=== PATIENT | male | born 1985 | race Caucasian/White ===

== ENCOUNTER 2018-05-10 15:47 | Emergency (ER) | payer SELFPAY ==
[2018-05-10] MEDS ORDERED: NA CHLORIDE 0.9% 1,000 ML ONE (17:59)
[2018-05-10 18:21] LABS: Absolute Lymphocytes (CBC) 2.8 K/uL (0.7-4.9); Absolute Monocytes 0.5 K/uL (0.1-1.3); Absolute Neutrophil 3.5 K/uL (1.8-8.0); Basophils % 0.4 % (0-1.3); Eosinophils % 0.9 % (0-4.4); Lymphocytes % 40.9 % (15.3-44.8); MCH 30.7 pg (27.0-35.0); MCV 91.1 fL (80-100); MPV 9.8 fL (7.6-11.3); Monocytes % 6.6 % (3.3-12.3); RBC Red Blood Cell Count 4.83 M/uL (4.33-5.43)
[2018-05-10 18:40] LABS: ALT/SGPT 32 U/L (12-78); AST/SGOT 16 U/L (15-37); Albumin 4.3 g/dL (3.4-5.0); Alkaline Phosphatase 53 U/L (45-117); BUN Blood Urea Nitrogen 13 mg/dL (7-18); Bicarbonate 32 mmol/L (21-32); Bilirubin Total 0.4 mg/dL (0.2-1.0); Glucose Level 84 mg/dL (74-106); Potassium 3.9 mmol/L (3.5-5.1); Protein, Total 7.7 g/dL (6.4-8.2); Sodium Level 140 mmol/L (136-145)
--- NOTE | 2018-05-10 19:34 | EDPHYS ---
Physician Documentation [facility] Name: Jayme Christian Age: 32 yrs Sex: Male : 1985 Arrival Date: 05/10/2018 Time: 15:50 Bed 13 Private MD: None, None ED Physician Kavon Vergara HPI: 05/10 18:05 This 32 yrs old Male presents to ER via Ambulatory with complaints of FATIGUE.jr8 18:05 Onset: The symptoms/episode began/occurred gradually, 2 day(s) ago. Associated signs jr8 and symptoms: Pertinent positives: shortness of breath, frequent thirst and urination . The patient has not experienced similar symptoms in the past. The patient has not recently seen a physician. Patient stated that he had URI about 1 week ago. Most of the symptoms have gone away. Tried working out and going to work. Stated that he is still breaking out into sweats. Having easy fatigue and shortness of breath along with chills still. Stated that he noticed he is requiring more water and urinating more as well . Historical: - Allergies: 16:24 steroid cream; aj1 - Home Meds: 16:24 None [Active]; aj1 - PMHx: 16:24 None; aj1 - PSHx: 16:24 None; aj1 - Immunization history:: Flu vaccine is not up to date. Last tetanus immunization: up to date. - Social history:: Smoking status: Patient/guardian denies using tobacco. - Ebola Screening: : Patient denies travel to an Ebola-affected area in the 21 days before illness onset. ROS: 18:05 Eyes: Negative for injury, pain, redness, and discharge, ENT: Negative for injury, jr8 pain, and discharge, Neck: Negative for injury, pain, and swelling, Cardiovascular: Negative for chest pain, palpitations, and edema, Abdomen/GI: Negative for abdominal pain, nausea, vomiting, diarrhea, and constipation, Back: Negative for injury and pain, MS/Extremity: Negative for injury and deformity, Skin: Negative for injury, rash, and discoloration, Neuro: Negative for headache, weakness, numbness, tingling, and seizure. 18:05 Constitutional: Positive for chills, fatigue. 18:05 Respiratory: Positive for shortness of breath, Negative for cough, sputum production, wheezing. 18:05 Endocrine: Positive for polydipsia, polyuria. Exam: 18:05 Eyes: Pupils equal round and reactive to light, extra-ocular motions intact. Lids and jr8 lashes normal. Conjunctiva and sclera are non-icteric and not injected. Cornea within normal limits. Periorbital areas with no swelling, redness, or edema. ENT: Nares patent. No nasal discharge, no septal abnormalities noted. Tympanic membranes are normal and external auditory canals are clear. Oropharynx with no redness, swelling, or masses, exudates, or evidence of obstruction, uvula midline. Mucous membranes moist. Neck: Trachea midline, no thyromegaly or masses palpated, and no cervical lymphadenopathy. Supple, full range of motion without nuchal rigidity, or vertebral point tenderness. No Meningismus. Cardiovascular: Regular rate and rhythm with a normal S1 and S2. No gallops, murmurs, or rubs. Normal PMI, no JVD. No pulse deficits. Respiratory: Lungs have equal breath sounds bilaterally, clear to auscultation and percussion. No rales, rhonchi or wheezes noted. No increased work of breathing, no retractions or nasal flaring. Abdomen/GI: Soft, non-tender, with normal bowel sounds. No distension or tympany. No guarding or rebound. No evidence of tenderness throughout. Back: No spinal tenderness. No costovertebral tenderness. Full range of motion. Skin: Warm, dry with normal turgor. Normal color with no rashes, no lesions, and no evidence of cellulitis. MS/ Extremity: Pulses equal, no cyanosis. Neurovascular intact. Full, normal range of motion. Neuro: Awake and alert, GCS 15, oriented to person, place, time, and situation. Cranial nerves II-XII grossly intact. Motor strength 5/5 in all extremities. Sensory grossly intact. Cerebellar exam normal. Normal gait. Vital Signs: 16:24 BP 138 / 99; Pulse 68; Resp 18; Temp 98.1; Pulse Ox 98% on R/A; Weight 102.06 kg; aj1 Height 6 ft. 2 in. (187.96 cm); Pain 0/10; 19:53 BP 107 / 83; Pulse 56; Resp 16; Temp 98.2; Pulse Ox 100% on R/A; Pain 0/10; ak1 16:24 Body Mass Index 28.89 (102.06 kg, 187.96 cm) aj1 MDM: 17:18 Patient medically screened. [facility] 19:29 Data reviewed: vital signs, nurses notes, lab test result(s), radiologic studies, plain [facility] films, and as a result, I will discharge patient. Data interpreted: Pulse oximetry: on room air is 98 %. Interpretation: normal. Counseling: I had a detailed discussion with the patient and/or guardian regarding: the historical points, exam findings, and any diagnostic results supporting the discharge/admit diagnosis, lab results, radiology results, the need for outpatient follow up, a family practitioner, to return to the emergency department if symptoms worsen or persist or if there are any questions or concerns that arise at home. Response to treatment: the patient's symptoms have mildly improved after treatment, patient is well hydrated. 05/10 17:56 Order name: CBC with Diff; Complete Time: 18:28 [facility] 05/10 17:56 Order name: CMP; Complete Time: 19:27 [facility] 05/10 17:36 Order name: Urine Dipstick-Ancillary (obtain specimen); Complete Time: 19:00 [facility] 05/10 17:56 Order name: XRAY Chest (1 view) [facility] 05/10 18:57 Order name: Urine Dipstick--Ancillary (enter results) 05/10 17:56 Order name: IV; Complete Time: 18:23 [facility] 05/10 17:56 Order name: Glucose Level; Complete Time: 18:23 [facility] Administered Medications: 18:23 Drug: NS 0.9% 1000 ml Route: IV; Rate: 1000 ml; Site: right antecubital; sg 20:04 Follow up: IV Status: Completed infusion ak1 Disposition: 05/10/18 19:34 Discharged to Home. Impression: Dehydration. - Condition is Stable. - Discharge Instructions: Dehydration, Adult. - Medication Reconciliation Form, Thank You Letter, Antibiotic Education, Prescription Opioid Use, Work release form form. - Follow up: Private Physician; When: 2 - 3 days; Reason: Recheck today's complaints, Continuance of care, Re-evaluation by your physician. - Problem is new. - Symptoms have improved. Addendum: 05/12/2018 14:49 Co-signature as Attending Physician, Kavon Vergara MD I agree with the assessment and w a plan of care. Signatures: Dispatcher [employer] Flora Orellana, RN RN aj1 Morales Camejo RN RN Willie Vaughn PA PA jr8 Jami Forbes RN RN ak1 Kavon Vergara MD MD wa Corrections: (The following items were deleted from the chart) 05/10 20:02 19:34 05/10/2018 19:34 Discharged to Home. Impression: Dehydration. Condition is ak1 Stable. Forms are Medication Reconciliation Form, Thank You Letter, Antibiotic Education, Prescription Opioid Use. Follow up: Private Physician; When: 2 - 3 days; Reason: Recheck today's complaints, Continuance of care, Re-evaluation by your physician. Problem is new. Symptoms have improved. jr8
--- NOTE | 2018-05-10 19:34 | ER ---
Nurse's Notes [facility] Name: Jayme Christian Age: 32 yrs Sex: Male : 1985 Arrival Date: 05/10/2018 Time: 15:50 Bed 13 Private MD: None, None Diagnosis: Dehydration Presentation: 05/10 16:18 Presenting complaint: Patient states: He got a URI last week, went to work and was aj1 feeling very thirsty, drank 2 liters of water in 2 hours and still felt like he was dehydrated, also reports chills, fatigue, urinary frequency one week ago. Reports cough and congestion that has now resolved. Patient states he's starting to feel better but was worried about exerting himself until he came in and got checked out. States "My mom is diabetic so I'm kind of worried that I might be now too". Transition of care: patient was not received from another setting of care. Risk Assessment: Do you want to hurt yourself or someone else? Patient reports no desire to harm self or others. Initial Sepsis Screen: Does the patient meet any 2 criteria? No. Patient's initial sepsis screen is negative. Does the patient have a suspected source of infection? No. Patient's initial sepsis screen is negative. Care prior to arrival: None. 16:18 Method Of Arrival: Ambulatory aj1 16:18 Acuity: BARBARA 3 aj1 19:55 Onset of symptoms is unknown. ak1 Triage Assessment: 16:24 The onset of the patients symptoms was more than six hours ago. General: Appears in no aj1 apparent distress. comfortable, Behavior is calm, cooperative, appropriate for age. Pain: Denies pain. Neuro: Level of Consciousness is awake, alert, obeys commands, Oriented to person, place, time, situation, Ms Sql Dba are equal bilaterally Moves all extremities. Full function Gait is steady, Speech is normal, Facial symmetry appears normal, Pupils are PERRLA, Intact Reports fatigue, exhaustion, generalized weakness. Historical: - Allergies: 16:24 steroid cream; aj1 - Home Meds: 16:24 None [Active]; aj1 - PMHx: 16:24 None; aj1 - PSHx: 16:24 None; aj1 - Immunization history:: Flu vaccine is not up to date. Last tetanus immunization: up to date. - Social history:: Smoking status: Patient/guardian denies using tobacco. - Ebola Screening: : Patient denies travel to an Ebola-affected area in the 21 days before illness onset. Screenin:20 Abuse screen: Denies threats or abuse. Denies injuries from another. Nutritional sg screening: No deficits noted. Tuberculosis screening: No symptoms or risk factors identified. Never had TB. Fall Risk None identified. Assessment: 17:20 Patient has been NPO before screening. The patient is alert, and able to follow sg commands. The patient does not exhibit slurred or garbled speech. The patient is not exhibiting difficulty speaking. The patient does not exhibit difficulty understanding words. The patient is able to swallow own secretions with no drooling or need for suction. Patient tolerated one teaspoon of water. No drooling, immediate coughing, gurgling, or clearing of the throat was noted. The patient tolerated 90mL of water. No drooling, immediate coughing, gurgling, or clearing of the throat was noted. The patient passed the bedside swallow screening. Oral medications may be given as ordered. Contact Physician for further diet orders. Provider notified of bedside swallow screening results: Willie SMITH. General: Appears in no apparent distress. comfortable, well groomed, well developed, well nourished, Behavior is calm, cooperative, appropriate for age. Pain: Denies pain. Neuro: Level of Consciousness is awake, alert, obeys commands, Oriented to person, place, time, situation, Ms Sql Dba are equal bilaterally Moves all extremities. Full function Speech is normal, Facial symmetry appears normal. Cardiovascular: Heart tones S1 S2 present Capillary refill is brisk in bilateral fingers Patient's skin is warm and dry. Chest pain is denied. Cardiovascular: Reports fatigue. Respiratory: Airway is patent Respiratory effort is even, unlabored, Respiratory pattern is regular, symmetrical. GI: Reports tolerance of fluids, tolerance of food, recently started the "keto diet". : No signs and/or symptoms were reported regarding the genitourinary system. EENT: No signs and/or symptoms were reported regarding the EENT system. Derm: Skin is pink, warm \\T\\ dry. Musculoskeletal: Circulation, motion, and sensation intact. Range of motion: intact in all extremities, Swelling absent. Vital Signs: 16:24 BP 138 / 99; Pulse 68; Resp 18; Temp 98.1; Pulse Ox 98% on R/A; Weight 102.06 kg; aj1 Height 6 ft. 2 in. (187.96 cm); Pain 0/10; 19:53 BP 107 / 83; Pulse 56; Resp 16; Temp 98.2; Pulse Ox 100% on R/A; Pain 0/10; ak1 16:24 Body Mass Index 28.89 (102.06 kg, 187.96 cm) aj1 ED Course: 15:50 Patient arrived in ED. sb2 15:51 None, None is Private Physician. sb2 16:24 Triage completed. aj1 16:24 Arm band placed on Patient placed in waiting room, Patient notified of wait time. aj1 17:18 Willie Staples PA is PHCP. jr8 17:18 Kavon Vergara MD is Attending Physician. jr8 17:45 Morales Camejo, AIMEE is Primary Nurse. sg 17:50 Initial lab(s) drawn, by me, sent to lab. Inserted saline lock: 20 gauge in right sg antecubital area, using aseptic technique. Blood collected. Patient maintains SpO2 saturation greater than 95% on room air. 18:20 Urine collected: clean catch specimen, clear. sg 18:30 X-ray completed. Portable x-ray completed in exam room. Patient tolerated procedure kc2 well. 18:30 XRAY Chest (1 view) In Process Unspecified. EDMS 19:54 Patient has correct armband on for positive identification. Placed in gown. Bed in low ak1 position. Call light in reach. Side rails up X 1. Adult w/ patient. Pulse ox on. NIBP on. 19:54 No provider procedures requiring assistance completed. ak1 20:02 IV discontinued, intact, bleeding controlled, No redness/swelling at site. Pressure ak1 dressing applied. Administered Medications: 18:23 Drug: NS 0.9% 1000 ml Route: IV; Rate: 1000 ml; Site: right antecubital; sg 20:04 Follow up: IV Status: Completed infusion ak1 Outcome: 19:34 Discharge ordered by . jr8 19:55 Discharged to home ambulatory, with family. ak1 19:55 Condition: good 19:55 Discharge instructions given to patient, family, Instructed on discharge instructions, follow up and referral plans. Demonstrated understanding of instructions, follow-up care. 20:02 Patient left the ED. ak1 Signatures: Dispatcher [employer] EDFlora Obregon RN RN tia1 Morales Camejo RN Willie Mcclure PA PA jr8 Jami Forbes RN RN ak1 Stephenie Juarez 2 Josselin Miller 2
[2018-05-10 20:06] LABS: Urine Blood NEGATIVE (NEG); Urine Glucose NEGATIVE (NEG); Urine Protein NEGATIVE (NEG)
--- NOTE | 2018-05-10 21:04 | RAD REPORT ---
EXAM DESCRIPTION: RAD - Chest Single View - 05/10/2018 6:31 pm CLINICAL HISTORY: Dyspnea, shortness of breath COMPARISON: December 2015 TECHNIQUE: AP portable chest image was obtained 1828 hours . FINDINGS: Lungs are clear. Heart and vasculature are normal. No measurable pleural effusion and no p neumothorax. No gross bony abnormality seen. No acute aortic findings suspected. IMPRESSION: No acute cardiopulmonary process. No significant interval change.
== END 2018-05-10 20:02 | disposition home or self-care (01) ==
LOC: ER 15:47
DX: E86.0 Dehydration (principal)
CPT/HCPCS: 36415; 71045; 80053; 81003; 82962; 85025; 96360; 96361; 99284; J7030